=== PATIENT | female | born 1955 | race Caucasian/White ===

== ENCOUNTER 2016-11-20 14:15 | Emergency (ER) | payer OTHER ==
--- NOTE | 2016-11-20 15:07 | CT ---
CT CERVICAL SPINE WITHOUT CONTRAST: Date: 11/20/16 COMPARISON: None. HISTORY: Neck pain. TECHNIQUE: Multiple contiguous axial images were obtained in a CT of the cervical spine without contrast. Sagit leonel and coronal reformats were performed. FINDINGS: There is severe scoliotic curvature of the spine. This predominantly affects the lower cervical spin e. The vertebral bodies demonstrate normal height without fracture or subluxation. No osteophytes ar e seen in the cervical spine. Posterior facet arthrosis is seen along the right posterior facets in the lower cervical spine. The spinous processes are well aligned. Normal alignment of the skull base with the cervical spine is seen. No bony abnormality of the neural foramina or central canal seen. IMPRESSION: Scoliotic curvature of the spine with mild to moderate posterior facet arthrosis in the lower right cervical spine. POS: [facility]
--- NOTE | 2016-11-20 15:13 | CT ---
CT OF THE LUMBAR SPINE WITHOUT CONTRAST: Date: 11/20/16 COMPARISON: None. HISTORY: Low back pain. TECHNIQUE: Multiple contiguous axial images were obtained in a CT of the lumbar spine without contrast. FINDINGS: Mild scoliotic curvature of the lumbar spine is seen. The vertebral bodies demonstrate normal height and alignment without fracture or subluxation. There is intervertebral disc space narrowing at L5-S 1 with vacuum phenomenon in the disc space and surrounding osteophyte formation. The patient is status post cholecystectomy. Atherosclerotic calcifications are seen in the aorta. Th ere are emphysematous changes in the lungs. Scattered diverticula are seen in the colon. The paraspi nal soft tissues are unremarkable. There is mild left neural foraminal stenosis at L5-S1. There is no significant bony narrowing of any of the other lumbar neural foramina. No bony narrowing of the central canal is seen. IMPRESSION: 1. Degenerative changes of the lower lumbar spine as above. 2. Mild scoliosis of the lumbar spine. POS: [facility]
--- NOTE | 2016-11-20 15:23 | CT ---
CT OF THE THORACIC SPINE WITHOUT CONTRAST: Date: 11/20/16 HISTORY: Back pain. TECHNIQUE: Multiple contiguous axial images were obtained in a CT of the thoracic spine without contrast. FINDINGS: There is severe scoliotic curvature of the thoracic spine. This limits evaluation of the spine. Ther e is excessive bone formation in the upper thoracic spine along the area of maximal curvature. The C obb angle of the patient's scoliotic curvature is approximately 117 degrees. Vertebral anomalies may or may not be present in the upper thoracic spine and evaluation is difficult secondary to signific ant scoliotic curvature. There are moderate degenerative changes along the concave aspect of the cur vature in the lumbar spine. No acute fracture or subluxation is seen. There appears to be moderate l eft neural foraminal stenosis along the significant concave curvature of the spine. No significant b amara narrowing of the right neural foramina are appreciated. Emphysematous changes are seen in the lungs. Surgical clips are seen in the right axillary region. IMPRESSION: Severe scoliosis and degenerative changes of the thoracic spine as above. POS: [facility]
== END 2016-11-20 15:39 | disposition home or self-care (01) ==
LOC: MADERS 14:15
DX: S29.012A Strain of muscle and tendon of back wall of thorax, initial encounter (principal); S39.012A Strain of muscle, fascia and tendon of lower back, initial encounter; M25.50 Pain in unspecified joint; V89.2XXA Person injured in unspecified motor-vehicle accident, traffic, initial encounter
CPT/HCPCS: 72125; 72128; 72131

== ENCOUNTER 2018-02-16 16:58 | Emergency (ER) | payer BC, OTHER, SELFPAY ==
[~2018-02-16 16:58] MED LIST: Iopamidol 370 76% 125 ML VIAL FS ONE
[2018-02-16 17:35] LABS: #Basophils 0.2 thou/uL (0.0-0.2); #Eosinphils 0.2 thou/uL (0.0-0.7); #Lymphocytes 2.2 thou/uL (1.20-3.40); #Neutrophils 8.6 thou/uL (1.40-6.50); %Basophils 1.3 % (0.0-1.0); %Eosinophils 1.4 % (0.0-10.0); %Monocytes 7.9 % (0.0-10.0); %Neutrophils 71.4 % (42.0-75.0); Hemoglobin 14.9 g/dL (12.0-16.0); Mean Corpuscular HGB CONC 32.4 g/dL (32.0-36.0); Mean Corpuscular Hemoglobin 28.9 pg (27.0-31.0); Mean Platelet Volume 7.2 fL (7.4-10.4); Platelet Count 323 thou/uL (130-400); RBC Distribution Width 11.7 % (11.5-14.5); Red Blood Cell (RBC) Count 5.16 mill/uL (4.20-5.40)
[2018-02-16] MEDS ORDERED: Furosemide 40 MG/4 ML VIAL ONE (17:36)
[2018-02-16] MEDS ORDERED: Furosemide 20 MG/2 ML VIAL ONE (17:36)
[2018-02-16 17:48] LABS: Anion Gap 12 mmol/L (10-20); BUN (Urea Nitrogen) 15 mg/dL (9.8-20.1); Calc. Creatinine Clearance 0 mL/min (70-130); Calcium 9.7 mg/dL (7.8-10.44); Carbon Dioxide 29 mmol/L (23-31); Chloride 104 mmol/L (98-107); Estimated GFR-MDRD 89; Glucose 91 mg/dL (80-115); Potassium 3.8 mmol/L (3.5-5.1); Sodium 141 mmol/L (136-145)
[2018-02-16 17:54] LABS: CKMB 1.3 ng/mL (0-6.6); Troponin I 0.014 ng/mL (< 0.028)
[2018-02-16] MEDS ORDERED: Enoxaparin Sodium 40 MG/0.4 ML SYRINGE ONE (17:59)
--- NOTE | 2018-02-16 18:46 | RAD ---
AP VIEW CHEST: 02/16/2018 HISTORY: Chest pain. FINDINGS: AP view chest demonstrates EKG leads seen over the chest. There is marked dextroscoliosis seen. Surgical clips are seen in the right axillary region. Due to the marked scoliosis, the superior chest is difficult to assess on plain film radiography. No definite significant interval change is appreciated when compared to previous CT of the chest from 0 11/20/2016. IMPRESSION: 1. Marked dextroscoliosis. 2. Incidentally noted nodular density seen on the patient's skin. Does this patient have neurofibro matosis type I? POS: [facility]
[2018-02-16] MEDS ORDERED: methylPREDNISolone Sod Succ/PF 125 MG/2 ML VIAL ONE (19:02)
--- NOTE | 2018-02-16 19:19 | CT ---
CTA CHEST: HISTORY: Dyspnea on exertion. TECHNIQUE: A contrast enhanced CTA of the chest is performed, and 2D and 3D reconstructed images were performed on an independent 3D work station. FINDINGS: The patient has marked scoliosis. Numerous cutaneous lesions are also seen, compatible with neurofib romas. Small bilateral pleural effusions are seen. Some prominent interstitial markings are seen, compatibl e with interstitial fibrosis. There is a left aortopulmonary window enlarged lymph node, measuring 18 x 9 mm. There is also a right hilar enlarged lymph node, measuring 1.6 cm in maximum diameter. Malignancy ca nnot be excluded. IMPRESSION: Aortopulmonary window and right hilar enlarged lymph nodes. POS: [facility]
== END 2018-02-16 20:37 | disposition short-term general hospital (02) ==
LOC: MADERS 16:58
DX: R07.9 Chest pain, unspecified (principal); R06.00 Dyspnea, unspecified; R09.02 Hypoxemia; G43.909 Migraine, unspecified, not intractable, without status migrainosus; Z79.899 Other long term (current) drug therapy
CPT/HCPCS: 71045; 71275; 80048; 82553; 83880; 84484; 85025; 85379; 93005; 96372; 96374; 96375; J1650; J1940; J2930

== ENCOUNTER 2019-07-05 15:27 | Outpatient (CLI) | payer BC ==
--- NOTE | 2019-07-05 15:53 | RAD ---
EXAM: Two views chest PROVIDED CLINICAL HISTORY: Chest COMPARISON: 02/24/2018 FINDINGS: The right lung apex is excluded from view on the frontal projection, and there is distortion of media stinal structures due to severe scoliosis thoracic spine. The cardiac silhouette does appear to be mildly enlarged. There are mild chronic lung changes, but no focal area of consolidation or pleural f luid is seen. Surgical clips overlie the right axillary region. Calcifications are seen in the thoracic aorta. There has been no other interval change from prior exam. IMPRESSION: 1. Exclusion right lung apex, but there is otherwise no acute cardiopulmonary process. 2. Mild chronic lung changes. 3. Mild cardiomegaly. 4. Scoliosis thoracic spine.
== END 2019-07-05 15:28 | disposition home or self-care (01) ==
LOC: MADRAD 15:27
PROVIDERS: ATTEND Family Medicine
DX: R07.9 Chest pain, unspecified (principal); R06.09 Other forms of dyspnea; J98.4 Other disorders of lung; I51.7 Cardiomegaly; M41.9 Scoliosis, unspecified
CPT/HCPCS: 71046; 93005; 93010

== ENCOUNTER 2020-08-02 18:50 | Emergency (ER) | payer MEDICARE, OTHER ==
[2020-08-02] MEDS ORDERED: Meclizine HCl 25 MG TAB ONE (19:22)
== END 2020-08-02 19:33 | disposition home or self-care (01) ==
LOC: MADERS 18:50
DX: R42 Dizziness and giddiness (principal); H55.00 Unspecified nystagmus; D36.10 Benign neoplasm of peripheral nerves and autonomic nervous system, unspecified; R29.700 NIHSS score 0; J44.9 Chronic obstructive pulmonary disease, unspecified; G43.909 Migraine, unspecified, not intractable, without status migrainosus; Z85.41 Personal history of malignant neoplasm of cervix uteri; Z87.891 Personal history of nicotine dependence

== ENCOUNTER 2020-10-25 14:15 | Emergency (ER) | payer MEDICARE ==
[2020-10-25] MEDS ORDERED: Morphine 2 MG/ML VIAL ONE (14:55)
== END 2020-10-25 16:50 | disposition home or self-care (01) ==
LOC: MADERS 14:15
DX: S22.32XA Fracture of one rib, left side, initial encounter for closed fracture (principal); S40.022A Contusion of left upper arm, initial encounter; G43.909 Migraine, unspecified, not intractable, without status migrainosus; J44.9 Chronic obstructive pulmonary disease, unspecified; Z85.3 Personal history of malignant neoplasm of breast; Z85.41 Personal history of malignant neoplasm of cervix uteri; Z87.891 Personal history of nicotine dependence; Z79.899 Other long term (current) drug therapy; W19.XXXA Unspecified fall, initial encounter
CPT/HCPCS: 96372; J2270